=== PATIENT | male | born 1975 | race Two or more races ===

== ENCOUNTER 2020-12-13 00:52 | Emergency (ER) | payer OTHER ==
[2020-12-13 01:26] VITALS: BP 156/97; PULSE 67; TEMP 97.8; BMI 24.7
[2020-12-13 01:39] LABS: PH,URINE 5.5 (5.0-8.0); URINE APPEARANCE CLEAR; URINE BILIRUBIN NEGATIVE (NEGATIVE); URINE COLOR YELLOW; URINE GLUCOSE (UA) 3+ (NEGATIVE); URINE KETONE NEGATIVE (NEGATIVE); URINE LEUK ESTERASE NEGATIVE (NEGATIVE); URINE NITRITE NEGATIVE (NEGATIVE); URINE PROTEIN NEGATIVE (NEGATIVE); URINE UROBILINOGEN 0.2 mg/dL (0.2-1.0)
== END 2020-12-13 01:56 | disposition home or self-care (01) ==
LOC: JER 00:52
DX: E11.65 Type 2 diabetes mellitus with hyperglycemia (principal); R73.9 Hyperglycemia, unspecified; I10 Essential (primary) hypertension
CPT/HCPCS: 81003; 82962; 87086; 99283-25

== ENCOUNTER 2022-09-01 13:42 | Inpatient (IN) | payer OTHER ==
[2022-09-01] MEDS ORDERED: SODIUM CHLORIDE 1,000 ML IV STA ×2 (14:10→16:39)
[2022-09-01 14:45] LABS: BASO % 1.2 % (0-2.0); EOS % 0.5 % (0-4.5); HEMATOCRIT 47.2 % (35.4-49); HEMOGLOBIN 16.2 GM/dL (11.7-16.9); LYMPH % 41.4 % (8-40); MCH 30.6 pg (25.7-33.7); MCHC 34.2 g/dl (32.0-35.9); MEAN CELL VOLUME 89.3 fl (80-96); MEAN PLT VOLUME 7.4 fl (7.5-11.1); MONO % 10.2 % (3.8-10.2); NEUT % 46.7 % (42.8-82.8); PLATELET COUNT 206 10^3/uL (134-434); RBC 5.29 M/mm3 (4.00-5.60); RDW 13.7 % (11.9-15.9); WHITE BLOOD COUNT 4.7 K/mm3 (4.0-10.0)
[2022-09-01] MEDS ORDERED: ASPIRIN 81 MG CHEWABLE TABLETS PO ONE (14:46)
[2022-09-01 14:49] LABS: EPI CELLS 2 /uL (0-25.1); HYALINE CASTS 0 /uL (0-3.1); PH,URINE 5.5 (5.0-8.0); URINE APPEARANCE CLEAR; URINE BACTERIA 1 /uL (0-1359); URINE BILIRUBIN NEGATIVE (NEGATIVE); URINE COLOR YELLOW; URINE GLUCOSE (UA) 3+ (NEGATIVE); URINE KETONE TRACE (NEGATIVE); URINE LEUK ESTERASE NEGATIVE (NEGATIVE); URINE NITRITE NEGATIVE (NEGATIVE); URINE PROTEIN 1+ (NEGATIVE); URINE RBC 13 /uL (0-23.9); URINE UROBILINOGEN 0.2 mg/dL (0.2-1.0); URINE WBC 7 /uL (0-25.8)
[2022-09-01] MEDS ORDERED: ASPIRIN 81 MG CHEWABLE TABLETS ONE (14:49)
[2022-09-01 14:52] LABS: INR 1.07 (0.83-1.09); PROTHROMBIN TIME (PATIENT) 12.4 SEC (9.7-13.0)
[2022-09-01 14:54] LABS: ACTIVATED PTT 29.4 SECONDS (25.2-36.5)
[2022-09-01 15:03] LABS: CHLORIDE 101 mmol/L (98-107); SODIUM 138 mmol/L (136-145)
[2022-09-01 15:05] LABS: ALBUMIN 4.4 g/dl (3.4-5.0); ANION GAP 8 MMOL/L (8-16); CALCIUM 9.5 mg/dL (8.5-10.1); CO2 29 mmol/L (21-32); GLUCOSE,RANDOM 243 mg/dL (74-106)
[2022-09-01 15:08] LABS: SGOT/AST 25 U/L (15-37); SGPT/ALT 49 U/L (13-61)
[2022-09-01 15:09] LABS: CREATININE 0.8 mg/dL (0.55-1.3)
[2022-09-01 15:10] LABS: BILIRUBIN,TOTAL 0.8 mg/dL (0.2-1); TOT PROT 8.2 g/dl (6.4-8.2)
[2022-09-01 15:11] LABS: ALK PHOS 70 U/L (45-117)
[2022-09-01] MEDS ORDERED: metFORMIN HCL 500 MG TABLET (FP) PO ONE (16:38)
[2022-09-01] MEDS ORDERED: metFORMIN HCL 500 MG TABLET (FP) ONE (16:45)
[2022-09-01] MEDS ORDERED: levETIRAcetam 500 MG/5 ML INJECTION VIAL IVPB ONE ×2 (18:28→18:44)
[2022-09-01] MEDS: INSULIN SLIDING SCALE (NOVOLOG) 1 VIAL SQ SCH (19:49)
[2022-09-02] MEDS: INSULIN SLIDING SCALE (NOVOLOG) 1 VIAL SQ SCH ×3 (07:56→17:39)
[2022-09-02 08:08] LABS: BASO % 0.6 % (0-2.0); EOS % 1.8 % (0-4.5); HEMATOCRIT 43.5 % (35.4-49); HEMOGLOBIN 14.8 GM/dL (11.7-16.9); LYMPH % 47.2 % (8-40); MCH 30.4 pg (25.7-33.7); MCHC 34.1 g/dl (32.0-35.9); MEAN CELL VOLUME 89.1 fl (80-96); MEAN PLT VOLUME 8.1 fl (7.5-11.1); MONO % 12.2 % (3.8-10.2); NEUT % 38.2 % (42.8-82.8); PLATELET COUNT 181 10^3/uL (134-434); RBC 4.88 M/mm3 (4.00-5.60); RDW 13.4 % (11.9-15.9); WHITE BLOOD COUNT 3.9 K/mm3 (4.0-10.0)
[2022-09-02 08:38] LABS: CALCIUM 9.2 mg/dL (8.5-10.1)
[2022-09-02 08:39] LABS: BLOOD UREA NITROGEN 11.8 mg/dL (7-18)
[2022-09-02 08:41] LABS: CREATININE 0.8 mg/dL (0.55-1.3)
[2022-09-02] MEDS ORDERED: VALSARTAN 80 MG TABLET ONE (08:53)
[2022-09-02] MEDS: VALSARTAN 160 MG TABLET PO SCH (08:55)
[2022-09-02 09:25] LABS: ERYTHROCYTE SEDIMENTATION RATE 4 mm/hr (0-10)
[2022-09-02] MEDS ORDERED: ASPIRIN COATED 81 MG TABLET.EC PO SCH (10:00)
[2022-09-02 18:45] VITALS: BMI 26.3
[2022-09-02] MEDS: ATORVASTATIN CA 80 MG TABLET (FP) PO SCH (22:48)
[2022-09-03] MEDS: INSULIN SLIDING SCALE (NOVOLOG) 1 VIAL SQ SCH ×3 (06:33→16:17)
[2022-09-03 08:00] LABS: CHOLESTEROL 154 mg/dL (50-200); TRIGLYCERIDES 63 mg/dL (0-150)
[2022-09-03 08:01] LABS: LDL CHOLESTEROL (ONLY SJRH) 83 mg/dL (5-100)
[2022-09-03 08:03] LABS: HDL CHOLESTEROL 64 mg/dL (40-60)
[2022-09-03] MEDS: VALSARTAN 160 MG TABLET PO SCH (09:25)
[2022-09-03] MEDS ORDERED: ACETAMINOPHEN 325 MG TABLET (FP) PO PRN (20:41)
[2022-09-03] MEDS: ATORVASTATIN CA 80 MG TABLET (FP) PO SCH (21:21)
[2022-09-03] MEDS: levETIRAcetam 500 MG TABLET (FP) PO SCH (21:21)
[2022-09-04] MEDS: INSULIN SLIDING SCALE (NOVOLOG) 1 VIAL SQ SCH ×3 (06:32→17:33)
[2022-09-04] MEDS: levETIRAcetam 500 MG TABLET (FP) PO SCH (09:24)
[2022-09-04] MEDS: VALSARTAN 160 MG TABLET PO SCH (09:24)
[2022-09-04 14:21] VITALS: BP 121/75; PULSE 74; RESP 20; TEMP 98
== END 2022-09-04 17:44 | disposition home or self-care (01) | DRG 64 ==
LOC: JER 13:42 → JERFT 13:42 → JERBED 16:54 → UNDOADMOB 16:54 → OBSVTOIN 19:51 → JERBED 09-02 14:49 → J4W 09-02 14:57
PROVIDERS: ADMIT Internal Medicine
DX: I61.8 Other nontraumatic intracerebral hemorrhage (principal); G93.6 Cerebral edema; I10 Essential (primary) hypertension; E11.9 Type 2 diabetes mellitus without complications; R51.9 Headache, unspecified; M25.512 Pain in left shoulder
CPT/HCPCS: 36415; 70450-TC; 70496-TC; 70498-TC; 70544-TC; 70551-TC; 71046-TC-FY; 80048; 80053; 80061; 81003; 82962; 83036; 83735; 84484; 85025; 85610; 85651; 85730; 86140; 87086; 93005; 93010; 93306-TC; 97116-GP; 97162-GP; 99285-25; C9803-CS; G0378; U0003; U0005

== ENCOUNTER 2023-11-18 15:50 | Emergency (ER) | payer OTHER ==
[2023-11-18 15:54] VITALS: TEMP 98.5; BMI 26.4
[2023-11-18 19:22] VITALS: BP 131/91; PULSE 62; RESP 16
== END 2023-11-18 19:20 | disposition home or self-care (01) ==
LOC: JER 15:50
DX: R07.2 Precordial pain (principal)
CPT/HCPCS: 36415; 82550; 82553; 84484; 93005; 93010; 99284-25